=== PATIENT | male | born 1970 | race Caucasian/White ===

== ENCOUNTER → 2018-08-03 | Outpatient (CLI) | payer OTHER ==
[~2018-08-03] MED LIST: ASPIRIN325 OR; NORCO 5-325 TA1 EACH PO; PREVACID 30MG C30 M1 PO; SIMVASTATIN40 MG PO
== END ==
LOC: CAT 10:41
DX: Z13.6 Encounter for screening for cardiovascular disorders (principal); E78.00 Pure hypercholesterolemia, unspecified; I25.10 Atherosclerotic heart disease of native coronary artery without angina pectoris